=== PATIENT | male | born 1965 | race Caucasian/White ===

== ENCOUNTER 2019-02-25 05:26 | Day surgery (SDC) | payer OTHER, MEDICARE, MEDICAID ==
[~2019-02-25] VITALS: Ht 139.7 cm; Wt 47.7 kg
[2019-02-25] MEDS ORDERED: PROPOFOL 1% 20 ML VIAL IVP ONE (05:27)
[2019-02-25] MEDS ORDERED: LIDOCAINE/PF 2% 5 ML VIAL IM ONE (05:27)
[2019-02-25] MEDS ORDERED: DEXAMETHASONE SOD PHOS 4 MG/ML VIAL IVP ONE (05:27)
[2019-02-25] MEDS ORDERED: METOCLOPRAMIDE HCL 5 MG/ML 2 ML VIAL IVP ONE (05:27)
[2019-02-25] MEDS ORDERED: SUCCINYLCHOLINE CHLORIDE 20 MG/ML 10 ML VIAL IVP ONE (05:27)
[2019-02-25] MEDS ORDERED: RINGERS SOLUTION,LACTATED 1,000 ML IV ONE ×3 (06:25→10:23)
[2019-02-25 07:13] LABS: BASOPHILS % (AUTO) 0.3 % (0.0-2.0); EOSINOPHILS % (AUTO) 2.5 % (1.0-6.0); HEMATOCRIT 43.5 % (41-53); HEMOGLOBIN 14.5 g/dL (13.5-17.5); LYMPHOCYTES # (AUTO) 0.9 K/uL (1.0-4.8); LYMPHOCYTES % (AUTO) 16.7 % (22.0-44.0); MEAN CORPUSCULAR HEMOGLOBIN 31.9 pg (26.0-34.0); MEAN CORPUSCULAR HGB CONC 33.3 G/dL (31.0-37.0); MEAN CORPUSCULAR VOLUME 96 fL (80-100); MONOCYTES # (AUTO) 0.6 K/uL (0.1-1.0); MONOCYTES % (AUTO) 11.6 % (2.0-9.0); NEUTROPHILS # (AUTO) 3.5 K/uL (1.8-7.7); NEUTROPHILS % (AUTO) 68.9 % (40.0-70.0); PLATELET COUNT (AUTO) 147 K/uL (150-450); RED BLOOD CELL COUNT(AUTO) 4.55 MIL/uL (4.50-5.90); RED CELL DISTRIBUTION WIDTH 12.6 % (11.5-14.5)
[2019-02-25 07:23] LABS: PROTHROMBIN TIME 10.7 SEC (9.4-11.6)
[2019-02-25 07:30] LABS: ANION GAP 6 mmol/L (8-16); CALCIUM, TOTAL 9.3 mg/dL (8.8-10.5); CARBON DIOXIDE 32 mmol/L (22-29); CHLORIDE 104 mmol/L (98-107); CREATININE 0.92 mg/dL (0.60-1.30); GLOMERULAR FILTR. RATE CALC > 60 mL/min (>60); GLUCOSE,RANDOM 104 mg/dL (70-110); POTASSIUM 3.1 mmol/L (3.5-5.1); SODIUM SERUM 142 mmol/L (136-145); UREA NITROGEN, BLOOD 11 mg/dL (7-18)
[2019-02-25 07:36] LABS: ALANINE AMINOTRANSFERASE 95 U/L (12-78); ALBUMIN 3.8 g/dL (3.4-5.0); ALKALINE PHOSPHATASE 226 U/L (46-116); ASPARTATE AMINOTRANSFERASE 61 U/L (15-37); TOTAL PROTEIN, SERUM 8.1 g/dL (6.4-8.2)
[2019-02-25] MEDS ORDERED: POTASSIUM CHL 20 MEQ/0.9% NS 1,000 ML IV ONE (08:00)
[2019-02-25] MEDS ORDERED: AMPICILLIN SODIUM 1 GM/VIAL ONE (08:33)
[2019-02-25] MEDS ORDERED: BACL10TA GT (08:48)
[2019-02-25] MEDS ORDERED: LACO100 GT (08:48)
[2019-02-25] MEDS ORDERED: SENN8.6T90 GT (08:48)
[2019-02-25] MEDS ORDERED: CHOL200059 GT (08:48)
[2019-02-25] MEDS ORDERED: DIAZ5 GT (08:48)
[2019-02-25] MEDS ORDERED: DSSL GT (08:48)
[2019-02-25] MEDS ORDERED: FAMO20 GT (08:48)
[2019-02-25] MEDS ORDERED: PANT20TA GT (08:48)
[2019-02-25] MEDS ORDERED: [UNRECOGNIZED DRUG - CODE] GT (08:48)
[2019-02-25] MEDS ORDERED: METO10L GT (08:48)
[2019-02-25] MEDS ORDERED: LEVE500L GT (08:48)
[2019-02-25] MEDS ORDERED: POLY17PO GT (08:48)
[2019-02-25] MEDS ORDERED: MULT-685 GT (08:48)
== END 2019-02-25 12:00 | disposition home or self-care (01) ==
LOC: SURGERY 05:26
PROVIDERS: ATTEND Dentist General Practice
DX: K05.30 Chronic periodontitis, unspecified (principal); K03.6 Deposits [accretions] on teeth; G80.8 Other cerebral palsy; G40.909 Epilepsy, unspecified, not intractable, without status epilepticus; Z79.899 Other long term (current) drug therapy
CPT/HCPCS: 36415; 41899; 71045; 80053; 85025; 85610; 85730; 93005; J0290; J0330; J1100; J2704; J2765; J3480; J3490; J7120